=== PATIENT | male | born 1980 | race African-American/Black ===

== ENCOUNTER 2016-12-08 19:33 | Emergency (ER) | payer OTHER ==
[~2016-12-08] VITALS: Ht 190.5 cm; Wt 114.0 kg
[2016-12-09] MEDS ORDERED: KETOROLAC 30MG/ML VIAL IM ONE
[2016-12-09 00:38] VITALS: BP 173/68
== END 2016-12-09 02:51 | disposition home or self-care (01) ==
LOC: ER 19:33
DX: S90.01XA Contusion of right ankle, initial encounter (principal); S90.31XA Contusion of right foot, initial encounter; X50.1XXA Overexertion from prolonged static or awkward postures, initial encounter; Y93.67 Activity, basketball; Y92.89 Other specified places as the place of occurrence of the external cause; Y99.8 Other external cause status
CPT/HCPCS: 73610; 73630; 96372; 99284; J1885; Z7610

== ENCOUNTER 2018-12-12 19:02 | Emergency (ER) | payer OTHER ==
[~2018-12-12] VITALS: Ht 190.5 cm; Wt 119.0 kg
[2018-12-12] MEDS ORDERED: KETOROLAC 60MG/2ML VIAL IM ONE (22:45)
[2018-12-13 01:16] VITALS: BP 138/78
== END 2018-12-13 01:41 | disposition home or self-care (01) ==
LOC: ER 19:02
DX: M79.89 Other specified soft tissue disorders (principal); M54.2 Cervicalgia; R51 Headache
CPT/HCPCS: 70490; 96372; 99284; J1885